=== PATIENT | female | born 1955 | race Caucasian/White ===

== ENCOUNTER 2020-11-03 13:57 | Outpatient (CLI) | payer OTHER ==
--- NOTE | 2020-11-03 14:38 | RAD ---
Right hip 2 views Left hip 2 views AP pelvis one view HISTORY: Bilateral hip pain. FINDINGS: Mild joint space narrowing of each hip. Mild osteophytosis of the hips and sacroiliac joint s. No acute fracture, dislocation, or aggressive osseous erosions. IMPRESSION : Very mild osteoarthritic changes. No acute abnormalities are demonstrated.
== END 2020-11-03 13:58 | disposition home or self-care (01) ==
LOC: MADRAD 13:57
PROVIDERS: ATTEND Family Medicine
DX: M25.551 Pain in right hip (principal); M25.552 Pain in left hip; M16.0 Bilateral primary osteoarthritis of hip
CPT/HCPCS: 73521

== ENCOUNTER 2021-02-22 09:31 | Emergency (ER) | payer OTHER ==
[2021-02-22 10:25] LABS: #Basophils 0.2 thou/uL (0.0-0.2); #Eosinphils 0.2 thou/uL (0.0-0.7); #Lymphocytes 3.5 thou/uL (1.20-3.40); #Monocytes 0.6 thou/uL (0.11-0.59); %Basophils 1.6 % (0.0-1.0); %Eosinophils 1.7 % (0.0-10.0); %Lymphocytes 33.5 % (21.0-51.0); %Monocytes 5.9 % (0.0-10.0); %Neutrophils 57.3 % (42.0-75.0); Hemoglobin 15.1 g/dL (12.0-16.0); Mean Corpuscular HGB CONC 32.4 g/dL (32.0-36.0); Mean Platelet Volume 6.3 fL (7.4-10.4); Platelet Count 360 thou/uL (130-400); RBC Distribution Width 14.4 % (11.5-14.5); Red Blood Cell (RBC) Count 4.71 mill/uL (4.20-5.40); White Blood Cell (WBC) Count 10.5 thou/uL (4.8-10.8)
[2021-02-22 10:46] LABS: Bilirubin Negative (Negative); Blood, Urine Trace (Negative); Clarity Clear (Clear); Glucose, Urine (Dipstick) Negative (Negative); Ketone, Urine Negative (Negative); Leukocyte Negative (Negative); Nitrite Negative (Negative); Protein, Urine (Dipstick) Negative (Neg-Trace); Specific Gravity, Urine 1.015 (1.005-1.030); Urobilinogen 0.2 mg/dL (Less than 2); pH, Urine 6.5 (5.0-9.0)
[2021-02-22 10:49] LABS: Bacteria/HPF Rare-Few HPF (None Seen); RBC/HPF 0-3 HPF (0-3); WBC/HPF 0-3 HPF (0-3)
[2021-02-22] MEDS ORDERED: Aspirin Chewable 81 MG TAB ONE (10:54)
[2021-02-22 11:19] LABS: ALT (SGPT) 17 U/L (8-55); AST (SGOT) 16 U/L (5-34); Albumin 4.5 g/dL (3.4-4.8); Alkaline Phosphatase 100 U/L (40-110); Anion Gap 18 mmol/L (10-20); BUN (Urea Nitrogen) 31 mg/dL (9.8-20.1); Bilirubin, Total 0.5 mg/dL (0.2-1.2); Calc. Creatinine Clearance 0 mL/min (70-130); Calcium 9.2 mg/dL (7.8-10.44); Carbon Dioxide 25 mmol/L (23-31); Chloride 104 mmol/L (98-107); Globulin 3.2 g/dL (2.4-3.5); Glucose 87 mg/dL (80-115); Magnesium 2.2 mg/dL (1.6-2.6); Potassium 4.3 mmol/L (3.5-5.1); Protein, Total 7.7 g/dL (5.8-8.1); Sodium 143 mmol/L (136-145)
[2021-02-22] MEDS ORDERED: Nitroglycerin 2% Ointment 1 INCH/1 GM Packet ONE (11:34)
[2021-02-22] MEDS ORDERED: Ondansetron PF 4 MG/2 ML Vial ONE (12:38)
[2021-02-22] MEDS ORDERED: Prochlorperazine 10 MG/2 ML VIAL ONE (14:02)
[2021-02-22] MEDS ORDERED: HYDROcodone/Acetaminophen 5/325 mg Tablet ONE (14:02)
== END 2021-02-22 14:32 | disposition short-term general hospital (02) ==
LOC: MADERS 09:31
DX: I24.9 Acute ischemic heart disease, unspecified (principal); R42 Dizziness and giddiness; E78.5 Hyperlipidemia, unspecified; I10 Essential (primary) hypertension; F17.210 Nicotine dependence, cigarettes, uncomplicated; J44.9 Chronic obstructive pulmonary disease, unspecified; K21.9 Gastro-esophageal reflux disease without esophagitis; Z79.899 Other long term (current) drug therapy
CPT/HCPCS: 70450; 71045; 80053; 81003; 81015; 83735; 83880; 84443; 84484; 85025; 93005; 96374; 96375; J0780; J2405

== ENCOUNTER 2021-03-09 10:40 | Emergency (ER) | payer OTHER ==
[~2021-03-09 10:40] MED LIST: Nitroglycerin 0.4 MG TAB 1 EACH ONE
[2021-03-09] MEDS ORDERED: Nitroglycerin 0.4 MG TAB 1 EACH ONE (11:08)
[2021-03-09] MEDS ORDERED: Aspirin Chewable 81 MG TAB ONE (11:08)
[2021-03-09 11:11] LABS: #Basophils 0.2 thou/uL (0.0-0.2); #Eosinphils 0.2 thou/uL (0.0-0.7); #Lymphocytes 3.3 thou/uL (1.20-3.40); #Monocytes 0.7 thou/uL (0.11-0.59); #Neutrophils 6.1 thou/uL (1.40-6.50); %Basophils 1.6 % (0.0-1.0); %Eosinophils 2.3 % (0.0-10.0); %Lymphocytes 31.8 % (21.0-51.0); %Monocytes 6.3 % (0.0-10.0); %Neutrophils 58.1 % (42.0-75.0); Hemoglobin 14.7 g/dL (12.0-16.0); Mean Corpuscular HGB CONC 32.3 g/dL (32.0-36.0); Mean Corpuscular Volume 99.1 fL (78.0-98.0); Mean Platelet Volume 6.1 fL (7.4-10.4); Platelet Count 364 thou/uL (130-400); RBC Distribution Width 14.3 % (11.5-14.5); Red Blood Cell (RBC) Count 4.59 mill/uL (4.20-5.40); White Blood Cell (WBC) Count 10.5 thou/uL (4.8-10.8)
[2021-03-09 11:25] LABS: ALT (SGPT) 20 U/L (8-55); AST (SGOT) 15 U/L (5-34); Albumin 4.3 g/dL (3.4-4.8); Alkaline Phosphatase 103 U/L (40-110); Anion Gap 17 mmol/L (10-20); BUN (Urea Nitrogen) 29 mg/dL (9.8-20.1); Bilirubin, Total 0.3 mg/dL (0.2-1.2); CK (CPK) 69 U/L (29-168); Calc. Creatinine Clearance 0 mL/min (70-130); Calcium 9.2 mg/dL (7.8-10.44); Carbon Dioxide 28 mmol/L (23-31); Chloride 103 mmol/L (98-107); Globulin 3.3 g/dL (2.4-3.5); Glucose 91 mg/dL (80-115); Lipase 24 U/L (8-78); Potassium 4.8 mmol/L (3.5-5.1); Protein, Total 7.6 g/dL (5.8-8.1); Sodium 143 mmol/L (136-145)
[2021-03-09] MEDS ORDERED: Nitroglycerin 2% Ointment 1 INCH/1 GM Packet ONE (11:41)
[2021-03-09] MEDS ORDERED: Enoxaparin Sodium 60 MG/0.6 ML SYRINGE ONE (12:08)
[2021-03-09] MEDS ORDERED: Enoxaparin Sodium 30 MG/0.3 ML SYRINGE ONE (12:08)
[2021-03-09] MEDS ORDERED: Acetaminophen 500 MG TAB ONE (12:08)
[2021-03-09] MEDS ORDERED: Enoxaparin Sodium 100 MG/ML SYRINGE ONE (12:09)
[2021-03-09 12:14] LABS: Bilirubin Negative (Negative); Blood, Urine Trace (Negative); Clarity Clear (Clear); Glucose, Urine (Dipstick) Negative (Negative); Ketone, Urine Negative (Negative); Leukocyte Negative (Negative); Nitrite Negative (Negative); Protein, Urine (Dipstick) Negative (Neg-Trace); Urobilinogen 0.2 mg/dL (Less than 2)
[2021-03-09 12:20] LABS: Bacteria/HPF None Seen HPF (None Seen); RBC/HPF 0-3 HPF (0-3); Squamous Epithelial None Seen HPF (0-3); WBC/HPF None Seen HPF (0-3)
[2021-03-09] MEDS ORDERED: Morphine 2 MG/ML VIAL ONE (13:40)
== END 2021-03-09 13:04 | disposition short-term general hospital (02) ==
LOC: MADERS 10:40
DX: R07.9 Chest pain, unspecified (principal); F17.210 Nicotine dependence, cigarettes, uncomplicated; E78.5 Hyperlipidemia, unspecified; I10 Essential (primary) hypertension; Z79.899 Other long term (current) drug therapy
CPT/HCPCS: 71045; 80053; 81003; 81015; 82550; 83690; 84484; 85025; 85379; 93005; 96372; 96374; J1650; J2270

== ENCOUNTER 2021-05-21 11:53 | Emergency (ER) | payer OTHER ==
[2021-05-21] MEDS ORDERED: Aspirin 325 MG TAB ONE (12:24)
[2021-05-21 12:52] LABS: #Basophils 0.1 thou/uL (0.0-0.2); #Eosinphils 0.2 thou/uL (0.0-0.7); #Lymphocytes 2.7 thou/uL (1.20-3.40); #Monocytes 0.5 thou/uL (0.11-0.59); #Neutrophils 3.2 thou/uL (1.40-6.50); %Basophils 1.6 % (0.0-1.0); %Eosinophils 3.1 % (0.0-10.0); %Lymphocytes 40.5 % (21.0-51.0); %Monocytes 7.5 % (0.0-10.0); %Neutrophils 47.3 % (42.0-75.0); Hemoglobin 13.7 g/dL (12.0-16.0); Mean Corpuscular HGB CONC 31.3 g/dL (32.0-36.0); Mean Corpuscular Hemoglobin 31.2 pg (27.0-31.0); Mean Corpuscular Volume 99.8 fL (78.0-98.0); Mean Platelet Volume 6.5 fL (7.4-10.4); Platelet Count 343 thou/uL (130-400); RBC Distribution Width 13.7 % (11.5-14.5); Red Blood Cell (RBC) Count 4.41 mill/uL (4.20-5.40); White Blood Cell (WBC) Count 6.7 thou/uL (4.8-10.8)
[2021-05-21 13:12] LABS: ALT (SGPT) 15 U/L (8-55); AST (SGOT) 15 U/L (5-34); Albumin 3.9 g/dL (3.4-4.8); Alkaline Phosphatase 107 U/L (40-110); Anion Gap 13 mmol/L (10-20); BUN (Urea Nitrogen) 13 mg/dL (9.8-20.1); Bilirubin, Total 0.5 mg/dL (0.2-1.2); Calc. Creatinine Clearance 0 mL/min (70-130); Calcium 9.4 mg/dL (7.8-10.44); Carbon Dioxide 28 mmol/L (23-31); Chloride 105 mmol/L (98-107); Globulin 3.2 g/dL (2.4-3.5); Glucose 100 mg/dL (80-115); Lipase 15 U/L (8-78); Potassium 3.7 mmol/L (3.5-5.1); Protein, Total 7.1 g/dL (5.8-8.1); Sodium 142 mmol/L (136-145)
[2021-05-21] MEDS ORDERED: Lidocaine Viscous Sol 2% 15 ml UD Cup ONE (13:12)
[2021-05-21] MEDS ORDERED: Furosemide 40 MG/4 ML VIAL ONE (13:12)
[2021-05-21] MEDS ORDERED: Albuterol Sulfate 2.5 mg/0.5 ml Neb ONE (13:12)
[2021-05-21] MEDS ORDERED: Mag-Al Plus 1200 MG/1200 MG/120 MG/30 ML UDCUP ONE (13:12)
[2021-05-21] MEDS ORDERED: Ipratropium Bromide 2.5 ml Neb ONE (13:12)
[2021-05-21 13:27] LABS: Magnesium 2.1 mg/dL (1.6-2.6)
[2021-05-21 13:29] LABS: Bilirubin Negative (Negative); Blood, Urine Negative (Negative); Clarity Clear (Clear); Glucose, Urine (Dipstick) Negative (Negative); Ketone, Urine Negative (Negative); Leukocyte Negative (Negative); Nitrite Negative (Negative); Protein, Urine (Dipstick) Negative (Neg-Trace); Specific Gravity, Urine 1.015 (1.005-1.030); Urobilinogen 0.2 mg/dL (Less than 2)
[2021-05-21] MEDS ORDERED: Cyclobenzaprine 10 MG TAB ONE (13:45)
[2021-05-21 16:31] LABS: SARS-CoV-2 NAA Rapid Test Not Detected (NotDetected)
== END 2021-05-21 17:05 | disposition short-term general hospital (02) ==
LOC: MADERS 11:53
DX: R60.0 Localized edema (principal); R07.9 Chest pain, unspecified; R10.13 Epigastric pain; M54.9 Dorsalgia, unspecified; Z20.822 Contact with and (suspected) exposure to COVID-19; I10 Essential (primary) hypertension; R06.2 Wheezing; R06.02 Shortness of breath; E78.5 Hyperlipidemia, unspecified; K21.9 Gastro-esophageal reflux disease without esophagitis; J44.9 Chronic obstructive pulmonary disease, unspecified; G47.00 Insomnia, unspecified; F17.210 Nicotine dependence, cigarettes, uncomplicated; Z79.899 Other long term (current) drug therapy
CPT/HCPCS: 71045; 80053; 81003; 83690; 83735; 83880; 84484; 85025; 85379; 93005; 96372; 96374; J0500; J1940; J7611; U0002

== ENCOUNTER 2022-01-26 12:31 | Emergency (ER) | payer OTHER ==
[2022-01-26] MEDS ORDERED: Sodium Chloride 0.9% 100 ML BAG ONE (13:04)
[2022-01-26] MEDS ORDERED: Iopamidol 370 76% 125 ML VIAL FS ONE (13:04)
[2022-01-26 13:28] LABS: Bilirubin Negative (Negative); Blood, Urine Trace (Negative); Clarity Clear (Clear); Glucose, Urine (Dipstick) Negative (Negative); Ketone, Urine Negative (Negative); Leukocyte Negative (Negative); Nitrite Negative (Negative); Protein, Urine (Dipstick) Negative (Neg-Trace); Urobilinogen 0.2 mg/dL (Less than 2); pH, Urine 5.5 (5.0-9.0)
[2022-01-26 13:29] LABS: #Basophils 0.1 thou/uL (0.0-0.2); #Eosinphils 0.1 thou/uL (0.0-0.7); #Lymphocytes 3.6 thou/uL (1.20-3.40); #Monocytes 0.6 thou/uL (0.11-0.59); #Neutrophils 4.5 thou/uL (1.40-6.50); %Basophils 1.5 % (0.0-1.0); %Eosinophils 1.6 % (0.0-10.0); %Lymphocytes 40.5 % (21.0-51.0); %Monocytes 6.4 % (0.0-10.0); Hemoglobin 14.3 g/dL (12.0-16.0); Mean Corpuscular HGB CONC 31.6 g/dL (32.0-36.0); Mean Corpuscular Hemoglobin 30.7 pg (27.0-31.0); Mean Corpuscular Volume 97.1 fL (78.0-98.0); Mean Platelet Volume 7.4 fL (7.4-10.4); Platelet Count 278 thou/uL (130-400); RBC Distribution Width 12.8 % (11.5-14.5); Red Blood Cell (RBC) Count 4.67 mill/uL (4.20-5.40)
[2022-01-26 13:33] LABS: Specific Gravity, Urine 1.007 (1.002-1.036)
[2022-01-26 13:36] LABS: Bacteria/HPF Rare-Few HPF (None Seen); RBC/HPF 0-3 HPF (0-3); Squamous Epithelial 0-3 HPF (0-3); WBC/HPF None Seen HPF (0-3)
[2022-01-26 13:48] LABS: ALT (SGPT) 18 U/L (8-55); AST (SGOT) 17 U/L (5-34); Albumin 4.3 g/dL (3.4-4.8); Alkaline Phosphatase 107 U/L (40-110); Anion Gap 17 mmol/L (10-20); BUN (Urea Nitrogen) 17 mg/dL (9.8-20.1); Bilirubin, Total 0.3 mg/dL (0.2-1.2); Calc. Creatinine Clearance 0 mL/min (70-130); Calcium 8.8 mg/dL (7.8-10.44); Carbon Dioxide 25 mmol/L (23-31); Chloride 105 mmol/L (98-107); Globulin 3.3 g/dL (2.4-3.5); Glucose 81 mg/dL (80-115); Lipase 16 U/L (8-78); Magnesium 2.1 mg/dL (1.6-2.6); Potassium 4.1 mmol/L (3.5-5.1); Protein, Total 7.6 g/dL (5.8-8.1); Sodium 143 mmol/L (136-145)
[2022-01-26] MEDS ORDERED: Mag-Al Plus 1200 MG/1200 MG/120 MG/30 ML UDCUP ONE (15:04)
[2022-01-26] MEDS ORDERED: Lidocaine Viscous Sol 2% 15 ml UD Cup ONE (15:04)
[2022-01-26] MEDS ORDERED: Sodium Chloride 0.9% 500 ML ONE (15:04)
[2022-01-26 16:06] LABS: Troponin I Less than 0.010 ng/mL (< 0.028)
== END 2022-01-26 16:29 | disposition home or self-care (01) ==
LOC: MADERS 12:31
DX: K21.9 Gastro-esophageal reflux disease without esophagitis (principal); R07.9 Chest pain, unspecified; I10 Essential (primary) hypertension; J44.9 Chronic obstructive pulmonary disease, unspecified; I25.2 Old myocardial infarction; E78.5 Hyperlipidemia, unspecified; E66.9 Obesity, unspecified; F17.210 Nicotine dependence, cigarettes, uncomplicated; Z79.51 Long term (current) use of inhaled steroids; Z79.899 Other long term (current) drug therapy
CPT/HCPCS: 36415; 71275; 74022; 74174; 80053; 81003; 81015; 83605; 83690; 83735; 83880; 84484; 85025; 87086; 93005; J7030; Q9967